=== PATIENT | male | born 1990 | race Caucasian/White ===

== ENCOUNTER 2019-04-23 12:24 | Emergency (ER) | payer SELFPAY ==
[~2019-04-23] VITALS: Ht 175.3 cm; Wt 60.0 kg
--- NOTE | 2019-04-23 12:30 | NUR ---
PER [facility]: PT HAD SEIZURE ACTIVITY WITNESSED BY BYSTANDERS ON SIDEWALK -UNKNOWN LENGTH OF TIME. PT WAS POSTICTAL. PT CURRENTLY A&OX4, RESP EVEN & UNLABORED, SPEECH CLEAR. SLIGHT ABRASION TO BRIDGE OF NOSE, SLIGHT ABRASION W/ SWELLING TO LEFT EYEBOW, SLIGHT SWELLING TO LT UPPER LIP. PER PT: BROKEN FRONT TOOTH FROM A PRIOR SEIZURE. PT C/O LIM.
--- NOTE | 2019-04-23 12:41 | NUR ---
LABS DRAWN. XR AT BS
[2019-04-23 12:49] LABS: BASOPHILS # (AUTO) 0.02 x10^3/uL (0-0.1); BASOPHILS % (AUTO) 0 % (0-1); EOSINOPHILS # (AUTO) 0.04 x10^3/uL (0-0.4); EOSINOPHILS % (AUTO) 1 % (1-7); LYMPHOCYTES # (AUTO) 1.63 x10^3/uL (1-3.4); LYMPHOCYTES % (AUTO) 28 % (22-44); MD NO; MEAN CORPUSCULAR HGB CONC 33.7 g/dL (33.2-36.2); MEAN PLATELET VOLUME 8.7 fL (7.4-10.4); MONOCYTES # (AUTO) 0.31 x10^3/uL (0.2-0.8); MONOCYTES % (AUTO) 5 % (2-9); NEUTROPHILS # (AUTO) 3.79 x10^3/uL (1.8-6.8); NEUTROPHILS % (AUTO) 65 % (42-75); PLATELET COUNT 224 x10^3/uL (130-400); RED BLOOD COUNT 5.03 x10^6/uL (4.38-5.82); RED CELL DISTRIBUTION WIDTH 12.9 % (9.4-14.8)
[2019-04-23] MEDS ORDERED: LEVETIRACETAM 1,000 MG in SODIUM CHLORIDE 0.9% 100 ML IV ONE (13:00)
[2019-04-23] MEDS ORDERED: PLEASE ENTER ALLERGIES MC SCH (13:00)
[2019-04-23] MEDS ORDERED: PLEASE ENTER HEIGHT AND WEIGHT MC SCH (13:00)
--- NOTE | 2019-04-23 13:00 | NUR ---
IV SITE RESUCURED, IV LIA STARTED. PT SITTING COMFORTABLE IN BED TEXTING. CALL LIGHT WITHIN REACH.
[2019-04-23 13:01] LABS: ALBUMIN 3.7 g/dL (3.4-5.0); ANION GAP 13 mmol/L (5-15); CALCIUM 9.2 mg/dL (8.5-10.1); CHLORIDE 109 mmol/L (98-107); SALICYLATE LEVEL 3.2 mg/dL (2.8-20.0)
--- NOTE | 2019-04-23 13:28 | NUR ---
pt taken to CT
[2019-04-23] MEDS ORDERED: HYDROcodone/APAP 5/325 TABLET ONE (14:42)
--- NOTE | 2019-04-23 14:45 | NUR ---
PT SLEEPING, RT LAT POSITION W/ SIDE RAILS UP X2, SEIZURE PADS IN PLACE. SPOUSE IN ROOM. PT NOTIFIED OF PAIN MED; PT PREFERRING TO SLEEP; PAIN MED HELD FOR NOW.
[2019-04-23] MEDS ORDERED: HYDROcodone/APAP 5/325 TABLET PO ONE (15:00)
--- NOTE | 2019-04-23 15:07 | NUR ---
SPOUSE AT BEDSIDE, PAIN RX GIVEN TO PT, PT STATES HIS HEAD HURTS 4/10 PAIN. PT SITTING UP IN BED, PT COVERED WITH A GOWN AND BLANKET. CALL LIGHT ON BED WITHIN REACH,
--- NOTE | 2019-04-23 15:29 | NUR ---
PT READY FOR DC. WHEELED TO DC DESK VIA A WC WITH SPOUSE AND FRIEND. IV REMOVED.
[2019-04-23 15:38] VITALS: BP 100/47
== END 2019-04-23 15:42 | disposition home or self-care (01) ==
LOC: ED 13:59
DX: G40.909 Epilepsy, unspecified, not intractable, without status epilepticus (principal)
CPT/HCPCS: 36415; 70450; 71045; 80048; 80307; 82040; 83605; 85025; 93005; 96374; 99284; J1953